=== PATIENT | female | born 1975 | race African-American/Black ===

== ENCOUNTER 2020-09-08 21:42 | Emergency (ER) | payer MEDICAID, OTHER ==
[~2020-09-08] VITALS: Ht 167.6 cm; Wt 100.0 kg
[2020-09-08 23:13] LABS: BASOPHILS % 0.9 % (0.0-2.0); EOSINOPHILS % 0.7 % (0.0-5.0); HEMATOCRIT. 31.6 % (36.0-48.0); LYMPHOCYTES % 36.6 % (20.0-50.0); MEAN CORPUSCULAR HEMOGLOBIN 22.2 pg (28.0-32.0); MEAN CORPUSCULAR VOLUME 69.8 fL (81.0-99.0); MEAN PLATELET VOLUME 8.5 fl (7.4-10.4); MONOCYTES % 9.7 % (2.0-8.0); NEUTROPHILS % 52.1 % (40.0-76.0); PLATELET 280 x1000/uL (130-400); RED BLOOD CELL COUNT 4.53 mill/uL (4.2-5.4); RED CELL DISTRIBUTION WIDTH 18.9 % (11.6-14.6)
[2020-09-08 23:22] LABS: CHLORIDE 109 mEq/L (98-107)
[2020-09-08 23:28] LABS: HCG SCREEN NEGATIVE
[2020-09-08] MEDS ORDERED: POTASSIUM CHLORIDE 20MEQ TABLET SR PO SCH (23:45)
[2020-09-08 23:56] LABS: PLATELET ESTIMATE NORMAL
[2020-09-09 00:50] VITALS: BP 144/79
== END 2020-09-09 00:52 | disposition home or self-care (01) ==
LOC: ER 21:42
DX: R06.02 Shortness of breath (principal); D50.9 Iron deficiency anemia, unspecified; I10 Essential (primary) hypertension; Z98.51 Tubal ligation status; Z88.0 Allergy status to penicillin
CPT/HCPCS: 36415; 71045; 80053; 83880; 84484; 84703; 85025; 85379; 93005; 99285

== ENCOUNTER 2024-05-19 07:48 | Emergency (ER) | payer MEDICAID, OTHER ==
[~2024-05-19] VITALS: Ht 167.6 cm; Wt 113.0 kg
[2024-05-19 07:51] VITALS: O2SAT 100
[2024-05-19 08:22] LABS: CLARITY URINE TURBID (CLEAR); COLOR URINE YELLOW (YELLOW); GLUCOSE URINE NEGATIVE (NEGATIVE); KETONES URINE NEGATIVE (NEGATIVE); LEUKOCYTE ESTERASE URINE 2+ (NEGATIVE); NITRITE URINE NEGATIVE (NEGATIVE); OCCULT BLOOD URINE NEGATIVE (NEGATIVE); PROTEIN URINE 1+ (NEGATIVE); SPECIFIC GRAVITY URINE 1.022 (1.005-1.030)
[2024-05-19 08:33] LABS: BACTERIA URINE 4+; SQUAMOUS EPITHELIAL CELL URINE 3+ /lpf (RARE/1+); YEAST URINE NONE SEEN
[2024-05-19] MEDS ORDERED: SULF1TAB48 MT (08:47)
[2024-05-19] MEDS ORDERED: CEFP200T13 MT (09:12)
[2024-05-19] MEDS ORDERED: AMLO10TA80 MT (09:17)
[2024-05-19 09:23] VITALS: BP 164/74; PULSE 78; RESP 18; TEMP 36.72516; O2SAT 100
== END 2024-05-19 09:31 | disposition home or self-care (01) ==
LOC: ER 08:02
DX: N39.0 Urinary tract infection, site not specified (principal); I10 Essential (primary) hypertension; Z88.0 Allergy status to penicillin; Z98.51 Tubal ligation status; Z98.890 Other specified postprocedural states
CPT/HCPCS: 81003; 81025; 99283